=== PATIENT | male | born 1970 | race Caucasian/White ===

== ENCOUNTER 2023-11-30 07:46 | Outpatient (OUT) | payer BC, SELFPAY ==
--- NOTE | 2023-11-30 08:31 | FL_ITS ---
The [address] [address] Patient Name: EAGLE SIBLEY MRN: [id number] date: 1970 Sex: M Assigned Patient Location: [place] Current Patient Location: [place] Accession/Order Number: [id number] Exam Date: 11/30/2023 07:57 Report Date: 11/30/2023 10:32 At the request of: PAIGE COLES Procedure: FL cineradiography PROCEDURE: FL upper GI w air, FL cineradiography COMPARISON: None. 1.2 minutes of fluoroscopy. 8 images HISTORY: Gastroesophageal Reflux Disease TECHNIQUE: An air contrast upper gastrointestinal series was performed in the usual manner. Standard level fluoroscopic mode of operation utilized. FINDINGS: ESOPHAGUS:Significant delay in opening of the distal esophagus with hyperperistalsis at the gastroesophageal junction. There was normal distention approximately 30 seconds after the initial swallow. After this initial delay, normal passage of barium was observed STOMACH: Normal. No obstruction, mass, or ulceration. Normal motility. DUODENUM:2.6 cm diverticulum cranial margin at the duodenal jejunal junction OTHER: Negative. FL/FL cineradiography IMPRESSION: Delayed opening of the distal esophagus with associated hyperperistalsis. This corresponds with the patient's symptoms Electronically authenticated by: PRIMO NEWSOME Date: 11/30/2023 10:32
--- NOTE | 2023-11-30 08:31 | FL_ITS ---
The [address] [address] Patient Name: EAGLE SIBLEY MRN: [id number] date: 1970 Sex: M Assigned Patient Location: CT Current Patient Location: CT Accession/Order Number: [id number] Exam Date: 11/30/2023 07:57 Report Date: 11/30/2023 10:32 At the request of: PAIGE COLES Procedure: FL upper GI w air PROCEDURE: FL upper GI w air, FL cineradiography COMPARISON: None. 1.2 minutes of fluoroscopy. 8 images HISTORY: Gastroesophageal Reflux Disease TECHNIQUE: An air contrast upper gastrointestinal series was performed in the usual manner. Standard level fluoroscopic mode of operation utilized. FINDINGS: ESOPHAGUS:Significant delay in opening of the distal esophagus with hyperperistalsis at the gastroesophageal junction. There was normal distention approximately 30 seconds after the initial swallow. After this initial delay, normal passage of barium was observed STOMACH: Normal. No obstruction, mass, or ulceration. Normal motility. DUODENUM:2.6 cm diverticulum cranial margin at the duodenal jejunal junction OTHER: Negative. FL/FL upper GI w air IMPRESSION: Delayed opening of the distal esophagus with associated hyperperistalsis. This corresponds with the patient's symptoms Electronically authenticated by: PRIMO NEWSOME Date: 11/30/2023 10:32
== END 2023-11-30 07:47 | disposition home or self-care (01) ==
LOC: FL 07:49
PROVIDERS: PCP Family Medicine; Visit Provider Family Medicine
DX: K21.9 Gastro-esophageal reflux disease without esophagitis (principal)
CPT/HCPCS: 74246; 76120

== ENCOUNTER 2024-06-03 10:59 | Outpatient (OUT) | payer BC, SELFPAY ==
[2024-06-03 11:14] LABS: Basophils Absolute Auto 0.1 10^3/uL (0.0-0.1); Basophils Percent Auto 1.2 % (0.2-2.0); Eosinophils Absolute Auto 0.4 10^3/uL (0.0-0.7); Eosinophils Percent Auto 4.8 % (0.9-7.0); Hematocrit 46.7 % (42.0-54.0); Hemoglobin 16.7 g/dL (14.0-18.0); Immature Granulocytes Abs Auto 0.02 10^3/uL (0.00-0.03); Immature Granulocytes Pct Auto 0.2 % (0.0-0.5); Lymphocytes Absolute Auto 2.8 10^3/uL (1.2-3.8); Lymphocytes Percent Auto 33.4 % (20.5-60.0); Mean Corpuscular HGB Conc 35.8 g/dL (29.9-35.2); Mean Corpuscular Hemoglobin 31.6 pg (25.9-34.0); Mean Corpuscular Volume 88.3 fL (80.0-94.0); Mean Platelet Volume 11.3 fL (9.5-13.5); Monocytes Absolute Auto 0.5 10^3/uL (0.3-0.8); Monocytes Percent Auto 5.9 % (1.7-12.0); Neutrophils Absolute Auto 4.6 10^3/uL (1.4-6.5); Neutrophils Percent Auto 54.5 % (43.0-75.0); Platelet Count 167 10^3/uL (150-450); Red Blood Count 5.29 10^6/uL (4.70-6.10); Red Cell Distribution Width 13.1 % (11.0-15.0); White Blood Count 8.4 10^3/uL (4.0-11.0)
[2024-06-03 11:26] LABS: Estimated Average Glucose 206 mg/dL; Glycohemoglobin A1C 8.8 % (4.5-6.2)
[2024-06-03 11:49] LABS: Alanine Aminotransferase 57 U/L (16-63); Albumin Globulin Ratio 1.1; Albumin Level 3.7 g/dL (3.4-5.0); Alkaline Phosphatase 83 U/L (46-116); Anion Gap 11.8; Aspartate Amino Transferase 37 U/L (15-37); Bilirubin Total 0.6 mg/dL (0.2-1.0); Calcium 8.9 mg/dL (8.5-10.1); Carbon Dioxide 26.6 mmol/L (21.0-32.0); Chloride 107 mmol/L (98-107); Chol HDL Ratio 4.3; Cholesterol 120 mg/dL (<=200); Estimated GFR (African America >60 (>=60 mL/min/1.73m^2); Estimated GFR (Non-African Ame >60 (>=60 mL/min/1.73m^2); Free T3 1.83 pg/mL (2.18-3.98); Globulin 3.3 g/dL; Glucose 196 mg/dL (74-106); HDL Cholesterol 28 mg/dL (40-60); Potassium 4.4 mmol/L (3.5-5.1); Sodium 141 mmol/L (136-145); Thyroid Stimulating Hormone 1.302 uIU/mL (0.358-3.740); Triglycerides 168 mg/dL (<=150); VLDL CHOLESTEROL 33.6 mg/dL
== END 2024-06-03 11:00 | disposition home or self-care (01) ==
PROVIDERS: PCP Family Medicine; Visit Provider Family Medicine
DX: Z00.00 Encounter for general adult medical examination without abnormal findings (principal)
CPT/HCPCS: 36415; 80053; 80061; 82306; 83036; 84436; 84443; 84481; 85025